=== PATIENT | female | born 1940 ===

== ENCOUNTER 2018-04-10 10:09 | Emergency (ER) | payer OTHER ==
[~2018-04-10] VITALS: Ht 149.9 cm; Wt 56.7 kg
[2018-04-10] MEDS ORDERED: BETHANECHOL CHL50 MG (10:29)
[2018-04-10] MEDS ORDERED: ASA325 MG (10:29)
[2018-04-10] MEDS ORDERED: NIFE60TA3 (10:30)
[2018-04-10] MEDS ORDERED: CRESTOR10 MG (10:30)
[2018-04-10] MEDS ORDERED: HYDROCHLOROTHIA25 MG (10:30)
[2018-04-10] MEDS ORDERED: FOLIC ACID1 MG (10:30)
[2018-04-10] MEDS ORDERED: CENTRUM SILVER1 EAC2 (10:31)
[2018-04-10] MEDS ORDERED: NEURONTIN300 MG (10:31)
[2018-04-10] MEDS ORDERED: CALTRATE 600+D1 EAC1 (10:31)
[2018-04-10] MEDS ORDERED: TROMBONEX CAPS1 EACH (10:32)
[2018-04-10] MEDS ORDERED: NEURIN SL (10:33)
== END 2018-04-10 13:50 | disposition home or self-care (01) ==
LOC: ER 10:09
DX: S60.221A Contusion of right hand, initial encounter (principal); S60.211A Contusion of right wrist, initial encounter; W18.09XA Striking against other object with subsequent fall, initial encounter; Y93.89 Activity, other specified; Y92.018 Other place in single-family (private) house as the place of occurrence of the external cause; Y99.8 Other external cause status